=== PATIENT | female | born 2000 | race Caucasian/White ===

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

== ENCOUNTER 2022-01-30 14:39 | Emergency (ER) | payer OTHER ==
[~2022-01-30] VITALS: Ht 165.1 cm; Wt 123.6 kg
[2022-01-30 14:46] VITALS: BP 118/73
[2022-01-30 16:14] LABS: COVID AG,FIA SOURCE NASOPHARYNGEAL
== END 2022-01-30 17:25 | disposition home or self-care (01) ==
LOC: EMS 14:44
DX: U07.1 COVID-19 (principal); F17.210 Nicotine dependence, cigarettes, uncomplicated; F14.90 Cocaine use, unspecified, uncomplicated
CPT/HCPCS: 99283

== ENCOUNTER 2023-09-12 16:34 | Emergency (ER) | payer OTHER ==
[~2023-09-12] VITALS: Ht 167.6 cm; Wt 111.4 kg
[2023-09-12 16:52] VITALS: BP 119/71; PULSE 106; RESP 16; TEMP 98.5
[2023-09-12 17:43] LABS: COVID AG,FIA SOURCE NASAL SWAB
[2023-09-12 17:55] LABS: RAPID GROUP A STREP NEGATIVE (NEGATIVE)
[2023-09-12 18:01] LABS: SARS-COV2 (COVID) ANTIGEN,FIA Negative (Negative)
[2023-09-12 18:03] LABS: INFLUENZA TYPE A NEGATIVE FOR TYPE A (NEGATIVE); INFLUENZA TYPE B NEGATIVE FOR TYPE B (NEGATIVE)
[2023-09-12] MEDS ORDERED: ACET-66 PO (21:29)
[2023-09-12] MEDS ORDERED: IBUP-1554 PO (21:29)
[2023-09-12] MEDS ORDERED: DIPH50CA37 PO (21:29)
[2023-09-12] MEDS ORDERED: DiphenhydrAMINE HCL 25 MG CAPSULE PO ONE (21:30)
[2023-09-12] MEDS ORDERED: IBUPROFEN 600 MG TABLET PO ONE (21:30)
[2023-09-12] MEDS ORDERED: ACETAMINOPHEN 500 MG TABLET PO ONE (21:30)
== END 2023-09-12 22:17 | disposition home or self-care (01) ==
LOC: EMS 16:34
DX: J02.8 Acute pharyngitis due to other specified organisms (principal); F41.9 Anxiety disorder, unspecified; K80.20 Calculus of gallbladder without cholecystitis without obstruction; F17.210 Nicotine dependence, cigarettes, uncomplicated; F14.90 Cocaine use, unspecified, uncomplicated; Z20.822 Contact with and (suspected) exposure to COVID-19
CPT/HCPCS: 87430; 87804; 99284; Z7502; Z7610